=== PATIENT | female | born 1970 | race Hispanic/Latino ===

== ENCOUNTER → 2017-07-12 | Outpatient (CLI) | payer OTHER | END | disposition home or self-care (01) | LOC: OIH 08:33 | PROVIDERS: ATTEND Internal Medicine | DX: N28.1 Cyst of kidney, acquired (principal); Z90.49 Acquired absence of other specified parts of digestive tract | CPT/HCPCS: 74150 ==

== ENCOUNTER → 2018-08-30 | Outpatient (CLI) | payer OTHER | END | disposition home or self-care (01) | LOC: OIH 10:40 | PROVIDERS: ATTEND Internal Medicine | DX: M47.816 Spondylosis without myelopathy or radiculopathy, lumbar region (principal); M16.12 Unilateral primary osteoarthritis, left hip; M41.56 Other secondary scoliosis, lumbar region; M25.78 Osteophyte, vertebrae; I70.0 Atherosclerosis of aorta | CPT/HCPCS: 72100; 73502 ==

== ENCOUNTER → 2018-12-22 | Outpatient (CLI) | payer OTHER ==
[~2018-12-22] MED LIST: ASPI-555 PO; CHOL100044 PO; CILO50TA PO; FERR324T PO; INSU100I13 SQ; LISI-613 PO; METF-444 PO; METO25TA6 PO; RIVA2.5T PO; ROSU40TA21 PO
== END | disposition home or self-care (01) ==
LOC: OIH 15:25
PROVIDERS: ATTEND Internal Medicine
DX: I10 Essential (primary) hypertension (principal); Z90.49 Acquired absence of other specified parts of digestive tract
CPT/HCPCS: 71046

== ENCOUNTER 2018-12-29 22:39 | Inpatient (IN) | payer OTHER ==
[2018-12-29] MEDS ORDERED: ASPIRIN 81MG TAB.CHEW ONE (23:14)
[2018-12-29 23:33] LABS: APPEARANCE,URINE Clear (CLEAR); BILIRUBIN,URINE Negative (NEGATIVE); COLOR,URINE Yellow (YELLOW); GLUCOSE, URINE (UA) >=1000 mg/dL (NEGATIVE); KETONES,URINE Negative (NEGATIVE); LEUKOCYTE ESTERASE ,URINE Negative (NEGATIVE); NITRATE,URINE Negative (NEGATIVE); OCCULT BLOOD,URINE Negative (NEGATIVE); PROTEIN,URINE Negative (NEGATIVE); UROBILINOGEN,URINE 0.2 mg/dL (0.2-1.0)
[2018-12-29 23:37] LABS: POTASSIUM 3.7 mmol/L (3.5-5.1)
[2018-12-29 23:37] LABS: HCG,QUAL RESULT NEGATIVE (NEGATIVE)
[2018-12-29 23:39] LABS: BASOPHILS % (AUTO) 0.7 % (0.0-5.0); EOSINOPHILS % (AUTO) 1.3 % (0.0-8.0); HEMATOCRIT 32.9 % (36-48); LYMPHOCYTES % (AUTO) 22.7 % (21.0-51.0); MEAN CORPUSCULAR HEMOGLOBIN 25.7 pg (27.0-33.0); MEAN CORPUSCULAR HGB CONC 33.2 g/dL (32.0-36.0); MEAN CORPUSCULAR VOLUME 77.5 fL (79-99); MONOCYTES % (AUTO) 4.6 % (3.0-13.0); NEUTROPHILS % (AUTO) 70.7 % (40.0-77.0); PLATELET COUNT (AUTO) 324 K/uL (130-400); RED BLOOD CELL COUNT(AUTO) 4.25 MIL/uL (4.00-5.50); RED CELL DISTRIBUTION WIDTH 15.4 % (11.0-15.5); WHITE BLOOD COUNT (AUTO) 8.9 K/uL (4.8-10.8)
[2018-12-29 23:41] LABS: ALBUMIN 3.4 g/dL (3.5-5.0); BILIRUBIN,DIRECT 0.1 mg/dL (0.0-0.3); BILIRUBIN,TOTAL 0.2 mg/dL (0.2-1.0); TOTAL PROTEIN, SERUM 7.1 g/dL (6.0-8.3)
[2018-12-29 23:42] LABS: INR 1.21 (0.85-1.15); PARTIAL THROMBOPLASTIN TIME 76.6 SEC (26.3-35.5); PROTHROMBIN TIME 12.6 SEC (9.6-11.6)
[2018-12-29 23:44] LABS: BACTERIA,URINE None Seen /HPF (None Seen); RBC,URINE None Seen /HPF (0-1); SQUAMOUS EPITHELIAL CELL,UR Rare /HPF (0-2); WBC,URINE None Seen /HPF (0-1); YEAST,URINE BUDDING None Seen /HPF (None Seen)
[2018-12-29 23:54] LABS: B-TYPE NATRIURETIC PEPTIDE 11 pg/mL (0-100)
[2018-12-30] MEDS ORDERED: SODIUM CHLORIDE 0.9% 1000ML 1,000 ML IV ONE ×3 (00:17→05:05)
[2018-12-30] MEDS ORDERED: ONDANSETRON HCL 4 MG/2 ML VIAL ONE ×2 (00:18→02:24)
[2018-12-30] MEDS ORDERED: NITROGLYCERIN 1GM/1 INCH PACKET TD ONE (00:19)
[2018-12-30] MEDS ORDERED: MORPHINE SULFATE 2 MG/ML 1ML SYG ONE ×2 (00:19→02:24)
[2018-12-30] MEDS ORDERED: INSULIN HUMULIN R 100 UNIT/ML 3ML ONE (00:20)
[2018-12-30] MEDS ORDERED: CILO50TA PO (03:26)
[2018-12-30] MEDS ORDERED: FERR324T PO (03:26)
[2018-12-30] MEDS ORDERED: ASPI-555 PO (03:26)
[2018-12-30] MEDS ORDERED: METF-444 PO (03:26)
[2018-12-30] MEDS ORDERED: CHOL100044 PO (03:26)
[2018-12-30] MEDS ORDERED: ROSU40TA21 PO (03:26)
[2018-12-30] MEDS ORDERED: METO25TA6 PO (03:26)
[2018-12-30] MEDS ORDERED: RIVA2.5T PO (03:26)
[2018-12-30] MEDS ORDERED: LISI-613 PO (03:26)
[2018-12-30] MEDS ORDERED: INSU100I13 SQ (03:28)
[2018-12-30] MEDS: SODIUM CHLORIDE 0.9% 1000ML 1,000 ML IV SCH ×2 (04:30→20:05)
[2018-12-30 04:47] VITALS: BP 124/64
[2018-12-30 05:18] LABS: HEMATOCRIT 27.1 % (36-48); MEAN CORPUSCULAR HEMOGLOBIN 25.7 pg (27.0-33.0); MEAN CORPUSCULAR HGB CONC 33.6 g/dL (32.0-36.0); MEAN CORPUSCULAR VOLUME 76.4 fL (79-99); PLATELET COUNT (AUTO) 290 K/uL (130-400); RED BLOOD CELL COUNT(AUTO) 3.54 MIL/uL (4.00-5.50); RED CELL DISTRIBUTION WIDTH 15.2 % (11.0-15.5); WHITE BLOOD COUNT (AUTO) 7.9 K/uL (4.8-10.8)
[2018-12-30 05:39] LABS: CARBON DIOXIDE 24 mmol/L (21-32); CHLORIDE 108 mmol/L (101-111); CHOLESTEROL 101 mg/dL (<200); CREATINE KINASE, TOTAL 72 U/L (21-232); CREATININE 0.8 mg/dL (0.5-1.5); GLOMERULAR FILTR. RATE CALC 81 mL/min (>60); GLUCOSE,RANDOM 163 mg/dL (70-105); HDL CHOLESTEROL 36 mg/dL (35-85); LDL DIRECT 52 mg/dL (0-99); MYOGLOBIN 30 ng/mL (10-92); POTASSIUM 3.7 mmol/L (3.5-5.1); SODIUM SERUM 141 mmol/L (136-145); TRIGLYCERIDES 145 mg/dL (30-200); TROPONIN I < 0.04 ng/mL (0.00-0.06); UREA NITROGEN, BLOOD 12 mg/dL (7-18)
[2018-12-30] MEDS ORDERED: POTASSIUM CHLORIDE 20 MEQ ERTAB PO PRN (06:30)
[2018-12-30] MEDS ORDERED: MAGNESIUM 2GM PREMIX 50ML 50 ML IV PRN (06:30)
[2018-12-30] MEDS ORDERED: ONDANSETRON HCL 4 MG/2 ML VIAL IVP PRN (06:30)
[2018-12-30] MEDS ORDERED: HYDROMORPHONE HCL 0.5 MG/0.5 ML ML IVP PRN (06:30)
[2018-12-30] MEDS ORDERED: NITROGLYCERIN 1GM/1 INCH PACKET TD SCH (06:30)
[2018-12-30] MEDS: NITROGLYCERIN 1GM/1 INCH PACKET TD SCH ×3 (06:45→17:44)
[2018-12-30] MEDS: INSULIN HUMULIN R 100 UNIT/ML 3ML SQ SCH ×4 (06:52→20:32)
[2018-12-30] MEDS: ASPIRIN 325 MG TABLET PO SCH (07:53)
[2018-12-30] MEDS: CLINDAMYCIN 600 MG/D5% WATER 50 ML IV SCH ×2 (07:53→20:04)
[2018-12-30 07:56] VITALS: BP 126/68
[2018-12-30] MEDS ORDERED: CEFTRIAXONE SODIUM 1 GM IVP SCH (08:00)
[2018-12-30 12:01] VITALS: BP 128/62
[2018-12-30 12:15] LABS: CREATINE KINASE, TOTAL 61 U/L (21-232); MYOGLOBIN 34 ng/mL (10-92); TROPONIN I < 0.04 ng/mL (0.00-0.06)
[2018-12-30 16:34] VITALS: BP 144/84
[2018-12-30 19:32] VITALS: BP 162/83
[2018-12-30] MEDS: RIVAROXABAN 2.5 MG PO SCH (21:41)
[2018-12-30] MEDS ORDERED: MAGNESIUM CITRATE 296 ML SOLUTION PO ONE (23:00)
[2018-12-30 23:23] VITALS: BP 159/90
[2018-12-31] MEDS: NITROGLYCERIN 1GM/1 INCH PACKET TD SCH ×2 (00:45→05:53)
[2018-12-31 03:35] VITALS: BP 145/77
[2018-12-31 04:20] LABS: HEMATOCRIT 27.4 % (36-48); MEAN CORPUSCULAR HEMOGLOBIN 25.9 pg (27.0-33.0); MEAN CORPUSCULAR VOLUME 76.3 fL (79-99); PLATELET COUNT (AUTO) 273 K/uL (130-400); RED BLOOD CELL COUNT(AUTO) 3.59 MIL/uL (4.00-5.50); WHITE BLOOD COUNT (AUTO) 8.3 K/uL (4.8-10.8)
[2018-12-31 04:24] LABS: CREATININE 0.9 mg/dL (0.5-1.5); MAGNESIUM 1.6 mg/dL (1.80-2.40); POTASSIUM 3.6 mmol/L (3.5-5.1)
[2018-12-31] MEDS: INSULIN HUMULIN R 100 UNIT/ML 3ML SQ SCH (05:26)
[2018-12-31 05:33] LABS: BAND NEUTROPHILS % (MANUAL) 2 % (0-2); BASOPHILS % (MANUAL) 1 % (0-2); EOSINOPHILS % (MANUAL) 2 % (1-6); LYMPHOCYTES % (MANUAL) 24 % (22-44); MAN.DIFF COMMENT-IMPRESSION MANUAL DIFFERENTIAL; MONOCYTES % (MANUAL) 6 % (2-9); PLATELET MORPHOLOGY COMMENT ADEQUATE; REACTIVE LYMPHOCYTES 2 % (0-0); SEGMENTED NEUTROPHILS % 63 % (40-70)
--- NOTE | 2018-12-31 06:29 | NUR ---
MD Visit per MD Siu, patient ok to go home discharge today.
[2018-12-31] MEDS: GENTAMICIN SULFATE 0.3% 3.5 GM OPHTH OINT OU SCH ×2 (07:00→09:03)
[2018-12-31] MEDS: SODIUM CHLORIDE 0.9% 1000ML 1,000 ML IV SCH (07:10)
[2018-12-31 08:51] VITALS: BP 136/74
[2018-12-31] MEDS: RIVAROXABAN 2.5 MG PO SCH (09:00)
[2018-12-31] MEDS: CLINDAMYCIN 600 MG/D5% WATER 50 ML IV SCH (09:03)
[2018-12-31] MEDS: ASPIRIN 325 MG TABLET PO SCH (09:03)
== END 2018-12-31 09:56 | disposition home or self-care (01) | DRG 313 ==
LOC: EDH 22:39 → EDHIP 12-30 00:30 → 2DH 12-30 03:08
PROVIDERS: ADMIT Family Medicine; ATTEND Family Medicine
DX: R07.9 Chest pain, unspecified (principal); K85.90 Acute pancreatitis without necrosis or infection, unspecified; E11.9 Type 2 diabetes mellitus without complications; E78.5 Hyperlipidemia, unspecified; H10.9 Unspecified conjunctivitis; I10 Essential (primary) hypertension; I25.10 Atherosclerotic heart disease of native coronary artery without angina pectoris; Z79.01 Long term (current) use of anticoagulants; Z79.4 Long term (current) use of insulin; Z95.5 Presence of coronary angioplasty implant and graft
CPT/HCPCS: 36415; 71046; 74176; 76700; 80048; 80061; 80076; 81001; 81025; 82550; 82948; 83690; 83735; 83874; 83880; 84484; 85025; 85027; 85610; 85730; 93005; 93306; G0378; J1815; J2405; J3475; J3490; J7030

== ENCOUNTER 2021-02-23 14:43 | Observation (INO) | payer OTHER ==
[~2021-02-23] VITALS: Ht 154.9 cm; Wt 88.0 kg
[~2021-02-23 14:43] MED LIST changes: -ASPI-555 PO; +ASPI-556 PO; -LISI-613 PO; +LISI20TA24 PO
[2021-02-23 15:04] LABS: BASOPHILS % (AUTO) 0.4 % (0.0-5.0); EOSINOPHILS % (AUTO) 1.2 % (0.0-8.0); HEMATOCRIT 40.3 % (36-48); LYMPHOCYTES % (AUTO) 22.6 % (21.0-51.0); MEAN CORPUSCULAR HEMOGLOBIN 25.5 pg (27.0-33.0); MEAN CORPUSCULAR VOLUME 77.4 fL (79-99); MONOCYTES % (AUTO) 4.5 % (3.0-13.0); PLATELET COUNT (AUTO) 303 K/uL (130-400); RED BLOOD CELL COUNT(AUTO) 5.21 MIL/uL (4.00-5.50); RED CELL DISTRIBUTION WIDTH 12.9 % (11.0-15.5)
[2021-02-23 15:18] LABS: CREATININE 1.2 mg/dL (0.5-1.5); POTASSIUM 3.6 mmol/L (3.5-5.1)
[2021-02-23 15:28] LABS: ALBUMIN 3.5 g/dL (3.5-5.0); BILIRUBIN,TOTAL 0.3 mg/dL (0.2-1.0); TOTAL PROTEIN, SERUM 7.9 g/dL (6.0-8.3)
[2021-02-23] MEDS ORDERED: NITROGLYCERIN 0.4 MG SL TAB SL ONE (15:29)
[2021-02-23] MEDS ORDERED: NITROGLYCERIN 1GM OINT 1 INCH/1GM TD ONE ×2 (15:29→15:30)
[2021-02-23] MEDS ORDERED: LORAZEPAM 2 MG/ML 1 ML VIAL ONE (15:30)
[2021-02-23] MEDS ORDERED: LORAZEPAM 2 MG/ML 1 ML VIAL IVP ONE (15:30)
[2021-02-23] MEDS ORDERED: ASPIRIN 325MG TAB PO ONE (15:30)
[2021-02-23] MEDS ORDERED: ASPIRIN 325MG TAB ONE (15:34)
[2021-02-23] MEDS: NITROGLYCERIN 0.4 MG SL TAB SL PRN (16:02)
[2021-02-23] MEDS ORDERED: INSULIN HUMULIN R 100 UNIT/ML 3ML SQ ONE (16:30)
[2021-02-23 18:00] VITALS: BP 158/85
[2021-02-23] MEDS ORDERED: CLOP75TA14 PO (18:00)
[2021-02-23] MEDS ORDERED: ESTR1TAB17 PO (18:00)
[2021-02-23] MEDS ORDERED: PRAS10TA9 PO (18:00)
[2021-02-23] MEDS ORDERED: METFORMIN HCL 500 MG TABLET PO SCH (18:34)
[2021-02-23] MEDS ORDERED: PRASUGREL HCL 10 MG TABLET PO SCH (19:30)
[2021-02-23 20:14] VITALS: BP 140/79
[2021-02-23] MEDS: METOPROLOL TARTRATE 25 MG TAB PO SCH (21:03)
[2021-02-23] MEDS: ATORVASTATIN 40 MG TABLET PO SCH (21:04)
[2021-02-23] MEDS: CILOSTAZOL 100 MG TAB PO SCH (21:04)
[2021-02-23] MEDS: INSULIN HUMULIN 70/30 100 UNIT/ML 3ML SQ SCH (21:09)
[2021-02-23] MEDS: MORPHINE 2 MG SYG IVP PRN (22:23)
[2021-02-23 23:54] VITALS: BP 137/77
[2021-02-24 04:08] VITALS: BP 134/69
[2021-02-24 07:18] VITALS: BP 123/77
[2021-02-24] MEDS ORDERED: METOPROLOL TARTRATE 25 MG TAB PO SCH (09:00)
[2021-02-24] MEDS: **HM**(Cholecalciferol (Vitamin D3) (Vitamin D) 1,000 UNIT PO SCH (09:00)
[2021-02-24] MEDS: MORPHINE 2 MG SYG IVP PRN ×2 (09:36→20:03)
[2021-02-24] MEDS: ESTRADIOL 0.5 MG TABLET PO SCH (09:37)
[2021-02-24] MEDS: PRASUGREL HCL 10 MG TABLET PO SCH (09:38)
[2021-02-24] MEDS: CILOSTAZOL 100 MG TAB PO SCH ×2 (09:43→21:15)
[2021-02-24] MEDS: LISINOPRIL 20 MG TABLET PO SCH (09:45)
[2021-02-24] MEDS: METOPROLOL TARTRATE 25 MG TAB PO SCH ×2 (09:45→20:40)
[2021-02-24] MEDS: ASPIRIN 81 MG EC TAB PO SCH (09:46)
[2021-02-24] MEDS: INSULIN HUMULIN 70/30 100 UNIT/ML 3ML SQ SCH ×2 (10:15→22:37)
[2021-02-24 11:28] VITALS: BP 152/83
[2021-02-24 15:10] VITALS: BP 110/64
[2021-02-24 15:38] LABS: APPEARANCE,URINE Cloudy (CLEAR); BILIRUBIN,URINE Negative (NEGATIVE); COLOR,URINE Yellow (YELLOW); GLUCOSE, URINE (UA) >=1000 mg/dL (NEGATIVE); KETONES,URINE Negative (NEGATIVE); LEUKOCYTE ESTERASE ,URINE Negative (NEGATIVE); NITRATE,URINE Negative (NEGATIVE); OCCULT BLOOD,URINE Negative (NEGATIVE); PROTEIN,URINE POS 1+ mg/dL (NEGATIVE); UROBILINOGEN,URINE 0.2 mg/dL (0.2-1.0)
[2021-02-24 15:48] LABS: BACTERIA,URINE Moderate /HPF (None Seen); RBC,URINE 0-1 /HPF (0-1); SQUAMOUS EPITHELIAL CELL,UR Few /HPF (0-2); WBC,URINE 0-1 /HPF (0-1)
[2021-02-24 20:00] VITALS: BP 165/96
[2021-02-24] MEDS: NITROGLYCERIN 0.4 MG SL TAB SL PRN (20:37)
[2021-02-24] MEDS ORDERED: MAG/ALUM/SIMETH 30 ML UDCUP ONE (20:56)
[2021-02-24] MEDS ORDERED: METOPROLOL TARTRATE 1 MG/ML 5ML VIAL IV ONE ×2 (21:00→21:10)
[2021-02-24] MEDS: ATORVASTATIN 40 MG TABLET PO SCH (21:14)
[2021-02-25] VITALS: BP 130/69
[2021-02-25] MEDS ORDERED: NITROGLYCERIN 1GM OINT 1 INCH/1GM TD PRN (03:00)
[2021-02-25 04:00] VITALS: BP 115/63
[2021-02-25] MEDS: **HM**(Cholecalciferol (Vitamin D3) (Vitamin D) 1,000 UNIT PO SCH (09:00)
[2021-02-25] MEDS ORDERED: METOPROLOL TARTRATE 25 MG TAB PO SCH (09:00)
[2021-02-25 09:26] VITALS: BP 122/68
[2021-02-25] MEDS: PRASUGREL HCL 10 MG TABLET PO SCH (09:27)
[2021-02-25] MEDS: ASPIRIN 81 MG EC TAB PO SCH (09:27)
[2021-02-25] MEDS: ESTRADIOL 0.5 MG TABLET PO SCH (09:28)
[2021-02-25] MEDS: LISINOPRIL 20 MG TABLET PO SCH (09:28)
[2021-02-25] MEDS: CILOSTAZOL 100 MG TAB PO SCH (09:28)
[2021-02-25] MEDS: INSULIN HUMULIN 70/30 100 UNIT/ML 3ML SQ SCH (09:53)
[2021-02-25 11:21] VITALS: BP 130/63
[2021-02-25] MEDS: MORPHINE 2 MG SYG IVP PRN (16:34)
[2021-02-25 16:45] VITALS: BP 138/68
== END 2021-02-25 18:41 | disposition home or self-care (01) ==
LOC: EDH 14:43 → EDHIP 16:00 → 3AH 17:20
PROVIDERS: ADMIT Internal Medicine; ATTEND Internal Medicine
DX: I25.110 Atherosclerotic heart disease of native coronary artery with unstable angina pectoris (principal); I21.4 Non-ST elevation (NSTEMI) myocardial infarction; I24.9 Acute ischemic heart disease, unspecified; E10.65 Type 1 diabetes mellitus with hyperglycemia; E10.51 Type 1 diabetes mellitus with diabetic peripheral angiopathy without gangrene; I10 Essential (primary) hypertension; I25.2 Old myocardial infarction; K22.9 Disease of esophagus, unspecified; E66.9 Obesity, unspecified; E78.5 Hyperlipidemia, unspecified; Z79.4 Long term (current) use of insulin; Z90.710 Acquired absence of both cervix and uterus; Z79.84 Long term (current) use of oral hypoglycemic drugs; Z79.82 Long term (current) use of aspirin; Z79.899 Other long term (current) drug therapy; Z98.890 Other specified postprocedural states; Z68.36 Body mass index [BMI] 36.0-36.9, adult
CPT/HCPCS: 36415 ×3; 71045; 80053; 81001; 82550 ×4; 82948 ×6; 83874 ×4; 83880; 84484 ×5; 85025; 86140; 87077; 87088; 87186; 93005 ×4; 96372 ×3; 96374; 96375; 96376 ×2; 99285; G0378 ×50; J1815 ×5; J2060; J3490

== ENCOUNTER 2021-07-02 21:36 | Inpatient (IN) | payer MEDICARE, OTHER ==
[~2021-07-02] VITALS: Ht 154.9 cm; Wt 83.6 kg
[~2021-07-02 21:36] MED LIST changes: +CLOP75TA14 PO; +ESTR1TAB17 PO; +PRAS10TA9 PO
[2021-07-02] MEDS ORDERED: ASPIRIN 81MG CHEW TAB PO ONE (22:00)
[2021-07-02] MEDS ORDERED: LORAZEPAM 2 MG/ML 1 ML VIAL IVP ONE ×2 (22:00→23:00)
[2021-07-02] MEDS ORDERED: MORPHINE 4 MG SYG IVP ONE (22:00)
[2021-07-02] MEDS ORDERED: ONDANSETRON 4MG INJ IVP ONE (22:00)
[2021-07-02 22:13] LABS: BASOPHILS % (AUTO) 0.3 % (0.0-5.0); EOSINOPHILS % (AUTO) 0.9 % (0.0-8.0); HEMATOCRIT 40.3 % (36-48); LYMPHOCYTES % (AUTO) 14.8 % (21.0-51.0); MEAN CORPUSCULAR HEMOGLOBIN 25.3 pg (27.0-33.0); MEAN CORPUSCULAR HGB CONC 33.7 g/dL (32.0-36.0); MONOCYTES % (AUTO) 4.1 % (3.0-13.0); NEUTROPHILS % (AUTO) 79.7 % (40.0-77.0); PLATELET COUNT (AUTO) 346 K/uL (130-400); RED BLOOD CELL COUNT(AUTO) 5.37 MIL/uL (4.00-5.50); RED CELL DISTRIBUTION WIDTH 13.7 % (11.0-15.5); WHITE BLOOD COUNT (AUTO) 12.8 K/uL (4.8-10.8)
[2021-07-02] MEDS: NITROGLYCERIN 50MG/D5W 250ML 1 BOT IV PRN ×2 (22:22→22:38)
[2021-07-02 22:32] LABS: CREATININE 1.2 mg/dL (0.5-1.5); POTASSIUM 3.6 mmol/L (3.5-5.1)
[2021-07-02 22:37] LABS: ALBUMIN 4.1 g/dL (3.5-5.0); BILIRUBIN,TOTAL 0.3 mg/dL (0.2-1.0); MAGNESIUM 1.7 mg/dL (1.80-2.40); TOTAL PROTEIN, SERUM 8.4 g/dL (6.0-8.3)
[2021-07-02] MEDS ORDERED: ENOXAPARIN SODIUM 80 MG/0.8 ML SQ SCH (23:30)
[2021-07-02] MEDS ORDERED: IOHEXOL-350 75 ML VIAL IV ONE (23:50)
[2021-07-03] VITALS (44 sets, daily range): BP systolic 94–177; BP diastolic 60–104
[2021-07-03] MEDS ORDERED: METOPROLOL TARTRATE 1 MG/ML 5ML VIAL IV ONE
[2021-07-03] MEDS ORDERED: MORPHINE 2 MG SYG ONE (00:30)
[2021-07-03] MEDS: MORPHINE 2 MG SYG IVP PRN ×2 (00:30→04:54)
[2021-07-03] MEDS ORDERED: CLONIDINE HCL 0.1 MG TABLET PO PRN (01:00)
[2021-07-03 03:51] LABS: BASOPHILS % (AUTO) 0.3 % (0.0-5.0); EOSINOPHILS % (AUTO) 0.3 % (0.0-8.0); HEMATOCRIT 36.9 % (36-48); LYMPHOCYTES % (AUTO) 15.8 % (21.0-51.0); MEAN CORPUSCULAR HGB CONC 31.7 g/dL (32.0-36.0); MEAN CORPUSCULAR VOLUME 75.8 fL (79-99); MONOCYTES % (AUTO) 4.1 % (3.0-13.0); NEUTROPHILS % (AUTO) 79.2 % (40.0-77.0); PLATELET COUNT (AUTO) 315 K/uL (130-400); RED BLOOD CELL COUNT(AUTO) 4.87 MIL/uL (4.00-5.50); RED CELL DISTRIBUTION WIDTH 13.5 % (11.0-15.5); WHITE BLOOD COUNT (AUTO) 11.5 K/uL (4.8-10.8)
[2021-07-03 04:01] LABS: CREATININE 0.9 mg/dL (0.5-1.5); POTASSIUM 4.1 mmol/L (3.5-5.1)
[2021-07-03 04:26] LABS: ALBUMIN 3.4 g/dL (3.5-5.0); BILIRUBIN,TOTAL 0.2 mg/dL (0.2-1.0); TOTAL PROTEIN, SERUM 7.6 g/dL (6.0-8.3)
[2021-07-03] MEDS ORDERED: METOPROLOL TARTRATE 25 MG TAB ONE (05:05)
[2021-07-03] MEDS: 0.9%NACL 1000ML 1,000 ML IV SCH ×2 (05:59→18:30)
[2021-07-03] MEDS: METOPROLOL TARTRATE 25 MG TAB PO SCH ×3 (06:00→21:20)
[2021-07-03] MEDS ORDERED: ASPIRIN 81 MG EC TAB PO SCH (09:00)
[2021-07-03] MEDS: ENOXAPARIN SODIUM 80 MG/0.8 ML SQ SCH ×2 (09:32→21:20)
[2021-07-03] MEDS ORDERED: ISOS60TA77 PO (10:40)
[2021-07-03] MEDS ORDERED: HEPARIN 10,000 UNIT/10ML (1,000 UNIT/ML) VIAL ONE (11:56)
[2021-07-03] MEDS ORDERED: IOHEXOL 350 MG/ML 100ML INFUS..BTL IV ONE (11:57)
[2021-07-03] MEDS ORDERED: LIDOCAINE HCL 400MG/20ML VIAL ONE (11:57)
[2021-07-03] MEDS ORDERED: NITROGLYCERIN 50MG VIAL ONE (11:57)
[2021-07-03] MEDS ORDERED: IOHEXOL-350 50ML VIAL IV ONE (11:57)
[2021-07-03] MEDS ORDERED: BIVALIRUDIN 250 MG/VIAL IV ONE (11:58)
[2021-07-03] MEDS ORDERED: FENTANYL CITRATE PF 50 MCG/1 ML 2ML VIAL ONE (12:03)
[2021-07-03] MEDS ORDERED: MIDAZOLAM HCL 1 MG/ML 2ML VIAL ONE (12:03)
[2021-07-03 12:16] LABS: INR 0.98 (0.85-1.15); PROTHROMBIN TIME 10.7 SEC (9.6-11.6)
[2021-07-03 12:17] LABS: PARTIAL THROMBOPLASTIN TIME 34.6 SEC (26.3-35.5)
[2021-07-03] MEDS ORDERED: MAGNESIUM 2GM PREMIX 50ML 50 ML IV PRN (13:30)
[2021-07-03] MEDS ORDERED: LIDOCAINE HCL-MPF 1% 2ML VIAL IV PRN (13:30)
[2021-07-03] MEDS ORDERED: POTASSIUM CHLORIDE 20MEQ/100ML 100 ML IV PRN (13:30)
[2021-07-03] MEDS ORDERED: VERAPAMIL HCL 2.5 MG/ML VIAL ONE (14:12)
[2021-07-03] MEDS ORDERED: HYDRALAZINE 20MG/ML VIAL ONE (14:20)
[2021-07-03] MEDS ORDERED: NITROGLYCERIN 0.4 MG SL TAB SL PRN (16:00)
[2021-07-03] MEDS ORDERED: ONDANSETRON 4MG INJ IVP PRN (16:00)
[2021-07-03] MEDS: INSULIN HUMULIN R 100 UNIT/ML 3ML SQ SCH ×2 (16:30→21:16)
[2021-07-03 17:09] LABS: MYOGLOBIN 58 ng/mL (10-92)
[2021-07-03 17:10] LABS: CREATINE KINASE, TOTAL 439 U/L (21-232)
[2021-07-03] MEDS: METFORMIN HCL 500 MG TABLET PO SCH (19:40)
[2021-07-03] MEDS ORDERED: HUMALOG MIX SQ SCH (21:00)
[2021-07-03] MEDS: INSULIN HUMULIN 70/30 100 UNIT/ML 3ML SQ SCH (21:18)
[2021-07-03] MEDS: CILOSTAZOL 50 MG PO SCH (21:23)
[2021-07-03] MEDS: Rosuvastatin Calcium 40 MG PO SCH (21:24)
[2021-07-03] MEDS: FERROUS GLUCONATE TABLET PO SCH (21:28)
[2021-07-04] VITALS (24 sets, daily range): BP systolic 98–130; BP diastolic 47–74
[2021-07-04 04:11] LABS: BASOPHILS % (AUTO) 0.3 % (0.0-5.0); EOSINOPHILS % (AUTO) 1.5 % (0.0-8.0); MEAN CORPUSCULAR HEMOGLOBIN 24.5 pg (27.0-33.0); MEAN CORPUSCULAR HGB CONC 31.9 g/dL (32.0-36.0); MEAN CORPUSCULAR VOLUME 76.9 fL (79-99); MONOCYTES % (AUTO) 7.7 % (3.0-13.0); NEUTROPHILS % (AUTO) 66.8 % (40.0-77.0); PLATELET COUNT (AUTO) 245 K/uL (130-400); RED BLOOD CELL COUNT(AUTO) 4.16 MIL/uL (4.00-5.50); RED CELL DISTRIBUTION WIDTH 13.6 % (11.0-15.5); WHITE BLOOD COUNT (AUTO) 6.8 K/uL (4.8-10.8)
[2021-07-04 04:25] LABS: ALBUMIN 2.7 g/dL (3.5-5.0); BILIRUBIN,TOTAL 0.3 mg/dL (0.2-1.0); CREATININE 0.9 mg/dL (0.5-1.5); PHOSPHORUS 3.7 mg/dL (2.5-4.9); POTASSIUM 3.8 mmol/L (3.5-5.1); TOTAL PROTEIN, SERUM 6.4 g/dL (6.0-8.3)
[2021-07-04 05:29] LABS: B-TYPE NATRIURETIC PEPTIDE 152 pg/mL (0-100)
[2021-07-04] MEDS: METOPROLOL TARTRATE 25 MG TAB PO SCH ×3 (06:22→21:07)
[2021-07-04 06:29] LABS: HEMOGLOBIN A1C 8.3 % (4.0-6.0)
[2021-07-04] MEDS: INSULIN HUMULIN R 100 UNIT/ML 3ML SQ SCH ×4 (07:30→20:29)
[2021-07-04] MEDS: 0.9%NACL 1000ML 1,000 ML IV SCH ×2 (08:10→21:07)
[2021-07-04] MEDS: PRASUGREL HCL 10 MG TABLET PO SCH (08:11)
[2021-07-04] MEDS: ASPIRIN 81 MG EC TAB PO SCH (08:11)
[2021-07-04] MEDS: LISINOPRIL 20 MG TABLET PO SCH (08:11)
[2021-07-04] MEDS: FERROUS GLUCONATE TABLET PO SCH ×2 (08:15→20:26)
[2021-07-04] MEDS: ISOSORBIDE MONO 60MG SR TAB PO SCH (08:15)
[2021-07-04] MEDS: ESTRADIOL 0.5 MG TABLET PO SCH (08:16)
[2021-07-04] MEDS: METFORMIN HCL 500 MG TABLET PO SCH ×2 (08:16→19:20)
[2021-07-04] MEDS: CILOSTAZOL 50 MG PO SCH ×2 (08:20→21:07)
[2021-07-04] MEDS: ENOXAPARIN SODIUM 80 MG/0.8 ML SQ SCH ×2 (09:49→20:27)
[2021-07-04] MEDS: INSULIN HUMULIN 70/30 100 UNIT/ML 3ML SQ SCH ×2 (09:52→20:29)
[2021-07-04] MEDS: Rosuvastatin Calcium 40 MG PO SCH (21:07)
[2021-07-05 03:49] VITALS: BP 135/74
[2021-07-05] MEDS: METOPROLOL TARTRATE 25 MG TAB PO SCH (05:48)
[2021-07-05] MEDS: INSULIN HUMULIN R 100 UNIT/ML 3ML SQ SCH ×2 (06:22→11:30)
[2021-07-05 07:15] VITALS: BP 132/74
[2021-07-05] MEDS: FERROUS GLUCONATE TABLET PO SCH (08:13)
[2021-07-05] MEDS: PRASUGREL HCL 10 MG TABLET PO SCH (08:15)
[2021-07-05] MEDS: ASPIRIN 81 MG EC TAB PO SCH (08:15)
[2021-07-05] MEDS: ISOSORBIDE MONO 60MG SR TAB PO SCH (08:15)
[2021-07-05] MEDS: METFORMIN HCL 500 MG TABLET PO SCH (08:15)
[2021-07-05] MEDS: LISINOPRIL 20 MG TABLET PO SCH (08:15)
[2021-07-05] MEDS: ENOXAPARIN SODIUM 80 MG/0.8 ML SQ SCH (08:16)
[2021-07-05] MEDS: INSULIN HUMULIN 70/30 100 UNIT/ML 3ML SQ SCH (08:21)
[2021-07-05] MEDS: CILOSTAZOL 50 MG PO SCH (09:00)
[2021-07-05] MEDS: ESTRADIOL 0.5 MG TABLET PO SCH (09:00)
[2021-07-05] MEDS: 0.9%NACL 1000ML 1,000 ML IV SCH (10:50)
[2021-07-05 13:16] VITALS: BP 128/80
== END 2021-07-05 14:05 | disposition home or self-care (01) | DRG 247 ==
LOC: EDH 21:36 → EDHIP 07-03 00:06 → 2CH 07-03 02:58 → 2DH 07-04 12:42
PROVIDERS: ADMIT Internal Medicine; ATTEND Internal Medicine
PROC: 4A023N7 Measurement of Cardiac Sampling and Pressure, Left Heart, Percutaneous Approach (ICD-10-PCS; principal; 2021-07-03)
PROC: B2111ZZ Fluoroscopy of Multiple Coronary Arteries using Low Osmolar Contrast (ICD-10-PCS; 2021-07-03)
PROC: B2151ZZ Fluoroscopy of Left Heart using Low Osmolar Contrast (ICD-10-PCS; 2021-07-03)
PROC: 027035Z Dilation of Coronary Artery, One Artery with Two Drug-eluting Intraluminal Devices, Percutaneous Approach (ICD-10-PCS; 2021-07-03)
DX: T82.855A Stenosis of coronary artery stent, initial encounter (principal); I16.1 Hypertensive emergency; E87.1 Hypo-osmolality and hyponatremia; M62.82 Rhabdomyolysis; I24.9 Acute ischemic heart disease, unspecified; D72.829 Elevated white blood cell count, unspecified; E11.51 Type 2 diabetes mellitus with diabetic peripheral angiopathy without gangrene; E11.65 Type 2 diabetes mellitus with hyperglycemia; E66.9 Obesity, unspecified; E88.09 Other disorders of plasma-protein metabolism, not elsewhere classified; I10 Essential (primary) hypertension; I25.10 Atherosclerotic heart disease of native coronary artery without angina pectoris; F32.9 Major depressive disorder, single episode, unspecified; Y84.0 Cardiac catheterization as the cause of abnormal reaction of the patient, or of later complication, without mention of misadventure at the time of the procedure; E78.5 Hyperlipidemia, unspecified; F41.9 Anxiety disorder, unspecified; Z88.0 Allergy status to penicillin; Z88.8 Allergy status to other drugs, medicaments and biological substances; Z68.34 Body mass index [BMI] 34.0-34.9, adult; Z79.899 Other long term (current) drug therapy; Z95.5 Presence of coronary angioplasty implant and graft; Z82.49 Family history of ischemic heart disease and other diseases of the circulatory system; Z83.3 Family history of diabetes mellitus; Y92.89 Other specified places as the place of occurrence of the external cause
CPT/HCPCS: 36415; 71045; 71275; 80053; 82550; 82948; 83036; 83735; 83874; 83880; 84100; 84145; 84484; 85025; 85378; 85610; 85730; 93005; 93458; 99156; 99157; 99291; C1769; C9600; G0378; J0360; J0583; J1644; J1650; J1815; J2060; J2250; J2270; J2405; J3010; J3490; J7030; Q9967

== ENCOUNTER → 2022-09-30 | Outpatient (CLI) | payer MEDICARE ==
[~2022-09-30] MED LIST changes: -CHOL100044 PO; -CILO50TA PO; -CLOP75TA14 PO; +CLOP75TA32 PO; +EZET10TA48 PO; -FERR324T PO; +FURO40TA5 PO; +ISOS60TA77 PO; +NIFE-78 PO; -PRAS10TA9 PO; +RANO10005 PO; -RIVA2.5T PO
== END | disposition home or self-care (01) ==
LOC: RAH 10:51
PROVIDERS: ATTEND Internal Medicine
DX: M79.89 Other specified soft tissue disorders (principal); I82.401 Acute embolism and thrombosis of unspecified deep veins of right lower extremity; Z95.1 Presence of aortocoronary bypass graft
CPT/HCPCS: 93971

== ENCOUNTER → 2022-12-18 | Outpatient (CLI) | payer MEDICARE ==
[~2022-12-18] MED LIST changes: +REGADENOSON 0.4 MG/5 ML PF SYG IVP ONE
== END | disposition home or self-care (01) ==
LOC: SHCH 09:40
PROVIDERS: ATTEND Student in an Organized Health Care Education/Training Program
DX: R07.89 Other chest pain (principal)
CPT/HCPCS: 78452; 96374; 93017; J2785; A9500 ×2

== ENCOUNTER 2023-01-08 06:11 | Day surgery (SDC) | payer MEDICARE ==
[2022-12-31 15:30] LABS: BASOPHILS # (AUTO) 0.02 K/uL (0.00-0.20); BASOPHILS % (AUTO) 0.3 % (0.0-5.0); EOSINOPHILS # (AUTO) 0.09 K/uL (0.00-0.70); EOSINOPHILS % (AUTO) 1.2 % (0.0-8.0); HEMATOCRIT 31.8 % (36-48); IMMATURE GRANULOCYTE ABSOLUTE 0.03 K/uL (0-1); LYMPHOCYTES # (AUTO) 1.8 K/uL (1.0-4.8); LYMPHOCYTES % (AUTO) 24.4 % (21.0-51.0); MEAN CORPUSCULAR HEMOGLOBIN 26.8 pg (27.0-33.0); MEAN CORPUSCULAR HGB CONC 33.3 g/dL (32.0-36.0); MEAN CORPUSCULAR VOLUME 80.3 fL (79-99); MONOCYTES # (AUTO) 0.5 K/uL (0.1-1.0); MONOCYTES % (AUTO) 6.2 % (3.0-13.0); NEUTROPHILS % (AUTO) 67.5 % (40.0-77.0); PLATELET COUNT (AUTO) 262 K/uL (130-400); RED BLOOD CELL COUNT(AUTO) 3.96 MIL/uL (4.00-5.50); RED CELL DISTRIBUTION WIDTH 14.6 % (11.0-15.5); WHITE BLOOD COUNT (AUTO) 7.5 K/uL (4.8-10.8)
[2022-12-31 15:41] LABS: POTASSIUM 3.5 mmol/L (3.5-5.1)
[2022-12-31 15:42] LABS: INR < 0.93 (0.85-1.15); PROTHROMBIN TIME 9.8 SEC (9.6-11.6)
[2022-12-31 15:43] LABS: PARTIAL THROMBOPLASTIN TIME 30.6 SEC (26.3-35.5)
[2022-12-31 15:52] LABS: B-TYPE NATRIURETIC PEPTIDE 36 pg/mL (0-100)
[2022-12-31 16:07] VITALS: BP 149/74; PULSE 71; RESP 18
[2022-12-31 16:09] LABS: APPEARANCE,URINE CLEAR (CLEAR); BILIRUBIN,URINE NEGATIVE (NEGATIVE); COLOR,URINE LIGHT-YELLOW (YELLOW); GLUCOSE, URINE (UA) 300 mg/dL (NEGATIVE); KETONES,URINE NEGATIVE (NEGATIVE); LEUKOCYTE ESTERASE ,URINE NEGATIVE Leu/uL (NEGATIVE); NITRATE,URINE NEGATIVE (NEGATIVE); OCCULT BLOOD,URINE NEGATIVE (NEGATIVE); PH,URINE 6.5 (5.0-8.0); PROTEIN,URINE NEGATIVE (NEGATIVE); UROBILINOGEN,URINE 0.2 mg/dL (0.2-1.0)
[2022-12-31 16:10] LABS: ADD UA MICROSCOPIC YES
[2022-12-31 16:11] LABS: MUCUS,URINE RARE LPF (None Seen); SQUAMOUS EPITHELIAL CELL,UR RARE /HPF (0-2)
[~2023-01-08] VITALS: Ht 154.9 cm; Wt 83.2 kg
[~2023-01-08 06:11] MED LIST changes: -EZET10TA48 PO; +FURO20TA4 PO; -FURO40TA5 PO; -METO25TA6 PO; +METO50TA18 PO; +ONDA4TAB10 PO; -REGADENOSON 0.4 MG/5 ML PF SYG IVP ONE; +SEMA1PEN3 SQ; +fish oil PO
[2023-01-08 06:13] VITALS: BP 139/72; PULSE 77; RESP 18
[2023-01-08] MEDS ORDERED: 0.9%NACL 1000ML 1,000 ML IV ONE (06:21)
[2023-01-08] MEDS ORDERED: HEPARIN 10,000 UNIT/10ML (1,000 UNIT/ML) VIAL ONE (07:10)
[2023-01-08] MEDS ORDERED: IODIXANOL 320 MG/ML 100 ML VIAL ONE (07:10)
[2023-01-08] MEDS ORDERED: LIDOCAINE HCL 400MG/20ML VIAL ONE (07:10)
[2023-01-08] MEDS ORDERED: NITROGLYCERIN 50MG VIAL ONE (07:10)
[2023-01-08] MEDS ORDERED: VERAPAMIL HCL 2.5 MG/ML VIAL ONE (07:22)
[2023-01-08] MEDS ORDERED: MIDAZOLAM HCL 1 MG/ML 2ML VIAL ONE ×2 (07:24→07:43)
[2023-01-08] MEDS ORDERED: FENTANYL CITRATE PF 50 MCG/1 ML 2ML VIAL ONE (07:24)
[2023-01-08] MEDS ORDERED: GLUCAGON 1MG KIT 1 MG ML IM PRN (09:00)
[2023-01-08] MEDS ORDERED: DEXTROSE 50%-WATER 50 ML DISP.SYRIN IV PRN (09:00)
[2023-01-08 09:10] VITALS: BP 124/57; PULSE 69; RESP 14
[2023-01-08 09:25] VITALS: BP 144/72; PULSE 65; RESP 14
[2023-01-08 09:40] VITALS: BP 149/69; PULSE 60; RESP 11
[2023-01-08 09:55] VITALS: BP 130/71; PULSE 66; RESP 13
[2023-01-08 10:25] VITALS: BP 144/68; PULSE 68; RESP 14
== END 2023-01-08 10:25 | disposition home or self-care (01) ==
LOC: DAH 06:11
PROVIDERS: ATTEND Student in an Organized Health Care Education/Training Program
DX: I73.9 Peripheral vascular disease, unspecified (principal); I25.709 Atherosclerosis of coronary artery bypass graft(s), unspecified, with unspecified angina pectoris; Z79.01 Long term (current) use of anticoagulants; Z88.0 Allergy status to penicillin; Z82.49 Family history of ischemic heart disease and other diseases of the circulatory system; Z82.3 Family history of stroke; Z83.3 Family history of diabetes mellitus; Z80.9 Family history of malignant neoplasm, unspecified; Z79.82 Long term (current) use of aspirin; Z79.899 Other long term (current) drug therapy; Z88.2 Allergy status to sulfonamides; Z88.8 Allergy status to other drugs, medicaments and biological substances; Z53.8 Procedure and treatment not carried out for other reasons
CPT/HCPCS: 71045; 80048; 83880; 85025; 85610; 85730; 81001; 36415; 93005; 82948 ×2; C1769; C1894; J3010; J3490 ×3; J7030; J1644 ×2; J2250 ×2; Q9967; A4215; A4222; A4221; A4663; A4216; A4606; A4223 ×3; 99156; 99157

== ENCOUNTER → 2023-01-11 | Outpatient (CLI) | payer MEDICARE ==
[~2023-01-11] MED LIST changes: +IOHEXOL 350 MG/ML 100ML INFUS..BTL IV ONE; +IOHEXOL-350 50ML VIAL IV ONE
== END | disposition home or self-care (01) ==
LOC: RAH 09:49 → EDSTATUS 10:00
PROVIDERS: ATTEND Student in an Organized Health Care Education/Training Program
DX: I73.9 Peripheral vascular disease, unspecified (principal); I74.5 Embolism and thrombosis of iliac artery; I74.8 Embolism and thrombosis of other arteries
CPT/HCPCS: 75635; Q9967 ×2

== ENCOUNTER → 2023-04-29 | Outpatient (CLI) | payer OTHER ==
[~2023-04-29] MED LIST changes: -IOHEXOL 350 MG/ML 100ML INFUS..BTL IV ONE; -IOHEXOL-350 50ML VIAL IV ONE
== END | disposition home or self-care (01) ==
LOC: RAH 08:22
PROVIDERS: ATTEND Internal Medicine
DX: M41.9 Scoliosis, unspecified (principal)
CPT/HCPCS: 72082

== ENCOUNTER 2023-11-19 20:31 | Observation (INO) | payer OTHER ==
[~2023-11-19] VITALS: Ht 154.9 cm; Wt 75.7 kg
[~2023-11-19 20:31] MED LIST changes: +ONDA-243 PO; -ONDA4TAB10 PO; -ROSU40TA21 PO; +ROSU40TA88 PO
[2023-11-19] MEDS: atorVAStatin 40 MG TABLET PO ONE (20:58)
[2023-11-19] MEDS: ASPIRIN 325MG TAB PO ONE (20:58)
[2023-11-19] MEDS: hydrALAZine 20MG/ML VIAL IV ONE (20:59)
[2023-11-19] MEDS: NITROGLYCERIN 0.4 MG SL TAB SL PRN (20:59)
[2023-11-19] MEDS ORDERED: NITROGLYCERIN 30 GM TUBE TD ONE ×2 (21:00)
[2023-11-19 21:01] LABS: APPEARANCE,URINE CLEAR (CLEAR); BILIRUBIN,URINE NEGATIVE (NEGATIVE); COLOR,URINE COLORLESS (YELLOW); GLUCOSE, URINE (UA) 50 mg/dL (NEGATIVE); KETONES,URINE NEGATIVE (NEGATIVE); LEUKOCYTE ESTERASE ,URINE NEGATIVE Leu/uL (NEGATIVE); NITRATE,URINE NEGATIVE (NEGATIVE); OCCULT BLOOD,URINE NEGATIVE (NEGATIVE); PH,URINE 7.5 (5.0-8.0); PROTEIN,URINE 50 mg/dL (NEGATIVE); UROBILINOGEN,URINE 0.2 mg/dL (0.2-1.0)
[2023-11-19 21:02] LABS: ADD UA MICROSCOPIC YES
[2023-11-19 21:05] LABS: BASOPHILS # (AUTO) 0.03 K/uL (0.00-0.20); BASOPHILS % (AUTO) 0.4 % (0.0-5.0); EOSINOPHILS # (AUTO) 0.11 K/uL (0.00-0.70); EOSINOPHILS % (AUTO) 1.5 % (0.0-8.0); HEMATOCRIT 35.7 % (36-48); IMMATURE GRANULOCYTE ABSOLUTE 0.02 K/uL (0-1); LYMPHOCYTES # (AUTO) 2.3 K/uL (1.0-4.8); LYMPHOCYTES % (AUTO) 31.8 % (21.0-51.0); MEAN CORPUSCULAR HEMOGLOBIN 27.5 pg (27.0-33.0); MEAN CORPUSCULAR HGB CONC 35.3 g/dL (32.0-36.0); MEAN CORPUSCULAR VOLUME 77.9 fL (79-99); MONOCYTES # (AUTO) 0.5 K/uL (0.1-1.0); MONOCYTES % (AUTO) 6.5 % (3.0-13.0); NEUTROPHILS # (AUTO) 4.3 K/uL (1.8-7.7); NEUTROPHILS % (AUTO) 59.5 % (40.0-77.0); PLATELET COUNT (AUTO) 258 K/uL (130-400); RED BLOOD CELL COUNT(AUTO) 4.58 MIL/uL (4.00-5.50); RED CELL DISTRIBUTION WIDTH 12.8 % (11.0-15.5); WHITE BLOOD COUNT (AUTO) 7.2 K/uL (4.8-10.8)
[2023-11-19 21:08] LABS: SQUAMOUS EPITHELIAL CELL,UR RARE /HPF (0-2); WBC,URINE 0-1 /HPF (0-1)
[2023-11-19 21:11] LABS: CREATININE 1.2 mg/dL (0.5-1.0); POTASSIUM 3.8 mmol/L (3.5-5.1)
[2023-11-19 21:13] LABS: INR <= 0.93 (0.85-1.15)
[2023-11-19 21:14] LABS: PARTIAL THROMBOPLASTIN TIME 30.5 SEC (26.3-35.5)
[2023-11-19] MEDS: NITROGLYCERIN 1GM OINT 1 INCH/1GM TD ONE (21:27)
[2023-11-19 21:29] LABS: B-TYPE NATRIURETIC PEPTIDE 26 pg/mL (0-100)
[2023-11-19] MEDS ORDERED: hydrALAZine 20MG/ML VIAL IV PRN (23:00)
[2023-11-19] MEDS ORDERED: ONDANSETRON 4MG INJ IVP PRN (23:00)
[2023-11-19] MEDS ORDERED: acetaMINOPHEN 325 MG TAB PO PRN (23:00)
[2023-11-20 07:59] LABS: BASOPHILS # (AUTO) 0.03 K/uL (0.00-0.20); BASOPHILS % (AUTO) 0.4 % (0.0-5.0); EOSINOPHILS % (AUTO) 1.5 % (0.0-8.0); HEMATOCRIT 34.7 % (36-48); IMMATURE GRANULOCYTE ABSOLUTE 0.02 K/uL (0-1); LYMPHOCYTES # (AUTO) 1.7 K/uL (1.0-4.8); LYMPHOCYTES % (AUTO) 25.4 % (21.0-51.0); MEAN CORPUSCULAR HEMOGLOBIN 27.2 pg (27.0-33.0); MONOCYTES # (AUTO) 0.5 K/uL (0.1-1.0); MONOCYTES % (AUTO) 7.1 % (3.0-13.0); NEUTROPHILS # (AUTO) 4.4 K/uL (1.8-7.7); NEUTROPHILS % (AUTO) 65.3 % (40.0-77.0); PLATELET COUNT (AUTO) 224 K/uL (130-400); RED BLOOD CELL COUNT(AUTO) 4.34 MIL/uL (4.00-5.50); RED CELL DISTRIBUTION WIDTH 12.8 % (11.0-15.5); WHITE BLOOD COUNT (AUTO) 6.8 K/uL (4.8-10.8)
[2023-11-20 08:45] LABS: ALBUMIN 3.3 g/dL (3.5-5.0); BILIRUBIN,TOTAL 0.3 mg/dL (0.2-1.0); CREATININE 1.1 mg/dL (0.5-1.0); MAGNESIUM 1.4 mg/dL (1.80-2.40); POTASSIUM 4.3 mmol/L (3.5-5.1)
[2023-11-20] MEDS: metoPROLOL tartRATE 50 MG TAB PO SCH (10:12)
[2023-11-20] MEDS: LoSARTan 100 MG TABLET PO SCH (10:12)
[2023-11-20] MEDS: ASPIRIN 81MG CHEW TAB PO SCH (10:12)
[2023-11-20 10:50] VITALS: O2SAT 99
[2023-11-20 11:15] VITALS: BP 156/68; PULSE 72; RESP 18; TEMP 98
[2023-11-20] MEDS ORDERED: ROSU40TA88 PO (12:09)
[2023-11-20] MEDS ORDERED: LORA-192 PO (12:09)
[2023-11-20] MEDS ORDERED: CLOP-31 PO (12:09)
[2023-11-20] MEDS ORDERED: MELO-108 PO (12:09)
[2023-11-20] MEDS ORDERED: ESTR1TAB17 PO (12:09)
[2023-11-20] MEDS ORDERED: LISI10TA24 PO (12:09)
[2023-11-20] MEDS ORDERED: ISOS20TA85 PO (12:09)
[2023-11-20] MEDS ORDERED: METF-446 PO (12:09)
[2023-11-20] MEDS ORDERED: TIRZ7.5P SQ (12:09)
[2023-11-20] MEDS ORDERED: CILO100T3 PO (12:09)
[2023-11-20] MEDS ORDERED: MONT-39 PO (12:09)
[2023-11-20] MEDS: ISOSORBIDE MONO 60MG SR TAB PO ONE (12:36)
[2023-11-20] MEDS: amLODIPine 5 MG TAB PO ONE ×2 (12:36→16:00)
[2023-11-20 16:00] VITALS: BP 159/76; PULSE 63; RESP 18; TEMP 98.4
[2023-11-20] MEDS ORDERED: atorVAStatin 40 MG TABLET PO SCH (21:00)
== END 2023-11-20 17:20 | disposition home or self-care (01) ==
LOC: EDH 20:31 → INTOOBSV 22:30 → EDHIP 22:30 → 4AH 11-20 10:42
PROVIDERS: ADMIT Family Medicine; ATTEND Family Medicine
DX: I25.119 Atherosclerotic heart disease of native coronary artery with unspecified angina pectoris (principal); I16.0 Hypertensive urgency; I10 Essential (primary) hypertension; E11.9 Type 2 diabetes mellitus without complications; R07.9 Chest pain, unspecified; I25.2 Old myocardial infarction; E78.5 Hyperlipidemia, unspecified; E66.9 Obesity, unspecified; Z90.710 Acquired absence of both cervix and uterus; Z90.49 Acquired absence of other specified parts of digestive tract; Z95.1 Presence of aortocoronary bypass graft; Z88.2 Allergy status to sulfonamides; Z88.0 Allergy status to penicillin; Z88.1 Allergy status to other antibiotic agents; Z88.5 Allergy status to narcotic agent; Z79.4 Long term (current) use of insulin; Z79.899 Other long term (current) drug therapy; Z91.148 Patient's other noncompliance with medication regimen for other reason; Z68.31 Body mass index [BMI] 31.0-31.9, adult
CPT/HCPCS: 82550 ×4; 84484 ×5; 80048; 83880; 85025 ×2; 85610; 85730; 81001; 36415 ×2; 71045; 96374; 99291; 93005; 83735; 84100; 80053; 93306; G0378 ×18; J0360

== ENCOUNTER 2024-08-18 03:11 | Emergency (ER) | payer OTHER ==
[~2024-08-18] VITALS: Ht 154.9 cm; Wt 72.6 kg
[~2024-08-18 03:11] MED LIST changes: -ASPI-556 PO; +CILO100T3 PO; +CLOP-31 PO; -CLOP75TA32 PO; -INSU100I13 SQ; +ISOS-58 PO; -ISOS60TA77 PO; +LISI10TA24 PO; -LISI20TA24 PO; +LORA-192 PO; +MELO-108 PO; -METF-444 PO; +METF-446 PO; +MONT-39 PO; -NIFE-78 PO; -RANO10005 PO; -SEMA1PEN3 SQ; +TIRZ7.5P SQ; -fish oil PO
--- NOTE | 2024-08-18 03:15 | ERN ---
General Chief Complaint: Chest Pain Stated Complaint: CHEST PAIN Time Seen by MD: 03:14 Source: patient History of Present Illness Initial Comments Patient is a 54-year-old female with a history of cardiac disease diabetes high blood pressure hypercholesterolemia comes in with a headache and chest pain which she often feels when her blood pressure gets very high. Her 1st reading in the unit here is systolic of 222 over a diastolic of 104. Patient also states that she has a little bit of nausea and vomiting and shortness of breath. Allergies: Coded Allergies: Penicillins (Unverified Allergy, Unknown, 12/30/18) Sulfa (Sulfonamide Antibiotics) (Unverified Allergy, Unknown, 12/30/18) ciprofloxacin (Unverified Allergy, Unknown, 12/30/18) vancomycin (Unverified Allergy, Unknown, SWELLING OF THROAT, 01/08/23) Home Meds Reported Medications Tirzepatide (Mounjaro) 7.5 Mg/0.5 Ml Pen.injctr, 7.5 MG SQ AD 11/20/23 Cilostazol (Cilostazol) 100 Mg Tablet, 100 MG PO BID, TAB 11/20/23 Clopidogrel Bisulfate (Plavix) 75 Mg Tablet, 75 MG PO AM, TAB 11/20/23 Isosorbide Mononitrate (Isosorbide Mononitrate) 20 Mg Tablet, 60 MG PO AM, TAB 11/20/23 Isosorbide Mononitrate (Isosorbide Mononitrate) 20 Mg Tablet, 20 MG PO AM, TAB 11/20/23 Metformin HCl (Metformin HCl) 1,000 Mg Tablet, 1000 MG PO BID, TAB 11/20/23 Estradiol (Estradiol) 1 Mg Tablet, 1 MG PO AM, TAB 11/20/23 Rosuvastatin Calcium (Rosuvastatin Calcium) 40 Mg Tablet, 40 MG PO HS, TAB 11/20/23 Lorazepam (Ativan) 1 Mg Tablet, 1 MG PO HS, TAB 11/20/23 Meloxicam (Meloxicam) 15 Mg Tablet, 15 MG PO AM, TAB 11/20/23 Montelukast Sodium (Montelukast Sodium) 10 Mg Tablet, 10 MG PO HS, TAB 24 Lisinopril (Lisinopril) 10 Mg Tablet, 10 MG PO BID, TAB 11/20/23 Metoprolol Tartrate (Metoprolol Tartrate) 50 Mg Tablet, 50 MG PO BID, TAB 12/31/22 Ondansetron (Ondansetron Odt) 4 Mg Tab.rapdis, 4 MG PO TID PRN for NAUSEA/VOMITING, TAB 12/31/22 Furosemide (Furosemide) 20 Mg Tablet, 20 MG PO AM, TAB 12/31/22 Past Medical History Past Medical History: Diabetes-Type II, High Cholesterol, Heart Disease, Hypertension, CA Medical History Other: PAD, STENTS Past Surgical History: Hysterectomy, Cholecystectomy, CABG, Other, Surgical History Other: STENTS, DBL BYPASS, PERIPHERAL VASCULAR BYPASS, NECK TUMOR REMOVAL Family History Family History: Negative Social History Social History: Lives with family, Other Female( History) History: Not Applicable Constitutional: (-) chills, (-) diaphoresis, (-) fever, (-) malaise, (-) weakness, (-) other documentation EENTM: (-) eye pain, (-) blurred vision, (-) tearing, (-) double vision, (-) ear pain, (-) ear discharge, (-) nose pain, (-) nose congestion, (-) throat pain, (-) Throat swelling, (-) mouth pain, (-) tooth pain, (-) mouth swelling, (-) other documentation Respiratory: (-) cough, (-) orthopnea, (-) short of breath, (-) stridor, (-) wheezing, (-) other documentation Cardiovascular: (+) chest pain Gastrointestinal/Abdominal: (+) nausea Genitourinary: (-) vaginal discharge, (-) vaginal bleeding, (-) dysuria, (-) frequency, (-) hematuria, (-) pain, (-) other documentation Musculoskeletal: (-) Neck pain, (-) back pain, (-) Flank Pain, (-) joint pain, (-) joint swelling, (-) muscle pain, (-) muscle stiffness, (-) gout, (-) other documentation Skin: (-) laceration, (-) contusion, (-) abrasion, (-) abscess, (-) rash, (-) change in color, (-) change in hair, (-) change in nails, (-) diaphoresis, (-) dryness, (-) other documentation Neuro: (+) headache Psych: (-) depression, (-) suicidal ideation, (-) anxiety, (-) emotional prob lems, (-) auditory hallucinations, (-) visual hallucinations Physical Exam General Appearance: (+) mild distress Orientation: (+) alert, (+) oriented x 3 Head/Face Trauma: No Eye: bilateral eye normal inspection, bilateral eye PERRL, bilateral eye EOMI Ear, Nose, Throat: (+) hearing grossly normal, (+) normal ENT inspection, (+) moist mucous membraine Neck: (+) normal inspection, (+) supple, (+) full range of motion Respiratory: (+) chest non-tender, (+) lungs clear, (+) well ventilated Heart: (+) regular, (+) no gallop Vascular: (+) no edema, (+) normal peripheral pulse Gastrointestinal: (+) soft, (+) non-tender, (+) bowel sound present Results Laboratory and Microbiology Lab and Micro Result Laboratory Tests Test 08/18/24 03:22 White Blood Count 7.4 K/uL (4.8-10.8) Red Blood Count 4.97 MIL/uL (4.00-5.50) Hemoglobin 13.6 g/dL (12.0-16.0) Hematocrit 39.5 % (36-48) Mean Corpuscular Volume 79.5 fL (79-99) Mean Corpuscular Hemoglobin 27.4 pg (27.0-33.0) Mean Corpuscular Hemoglobin Concent 34.4 g/dL (32.0-36.0) Red Cell Distribution Width 13.0 % (11.0-15.5) Platelet Count 248 K/uL (130-400) Mean Platelet Volume 8.8 fL (7.5-10.5) Immature Granulocyte % (Auto) 0.3 % (0-1) Neutrophils (%) (Auto) 59.8 % (40.0-77.0) Lymphocytes (%) (Auto) 31.3 % (21.0-51.0) Monocytes (%) (Auto) 6.5 % (3.0-13.0) Eosinophils (%) (Auto) 1.7 % (0.0-8.0) Basophils (%) (Auto) 0.4 % (0.0-5.0) Neutrophils # (Auto) 4.5 K/uL (1.8-7.7) Lymphocytes # (Auto) 2.3 K/uL (1.0-4.8) Monocytes # (Auto) 0.5 K/uL (0.1-1.0) Eosinophils # (Auto) 0.13 K/uL (0.00-0.70) Basophils # (Auto) 0.03 K/uL (0.00-0.20) Absolute Immature Granulocyte (auto 0.02 K/uL (0-1) Nucleated Red Blood Cells 0.0 % (0.0-0.19) Prothrombin Time 9.8 SEC (9.6-11.6) Prothromb Time International Ratio <= 0.93 (0.85-1.15) Activated Partial Thromboplast Time 30.0 SEC (26.3-35.5) Sodium Level 138 mmol/L (136-145) Potassium Level 3.5 mmol/L (3.5-5.1) Chloride Level 102 mmol/L (101-111) Carbon Dioxide Level 26 mmol/L (21-32) Blood Urea Nitrogen 20 mg/dL (7-18) H Creatinine 1.0 mg/dL (0.5-1.0) Glomerular Filtration Rate Calc 67 mL/min (>90) Random Glucose 148 mg/dL (70-105) H Total Calcium 9.5 mg/dL (8.5-10.1) Total Creatine Kinase 63 U/L (21-232) # Troponin I High Sensitivity 10 ng/L (4-50) B-Type Natriuretic Peptide 28 pg/mL (0-100) MDM I will give so the patient has some labetalol to see if that can lower her blood pressure quickly. The labetalol was held because the patient's blood pressure had dropped down to 160 systolic. EKG is normal sinus rhythm with no ischemic changes. BNP and troponin I had regular labs have been drawn. Patient's troponins and BNP are normal. Patient's chest x-ray is normal. The labetalol is currently on hold as the patient's blood pressure is dropping to more normal levels. It is systolic 141 currently. Patient's CBC and chemistry panel are also normal. I will discharge the patient from the emergency room. I discussed having the patient call her territory manager general sales for a backup blood pressure medication she can take if her blood pressure has a spike like this again and that way she can possibly avoid emergency room visits. ED Course Orders Procedure Category Date Status Time Vital Signs Per CPOE 08/18/24 Transmitted Routine 03:16 B-Type Natriuretic LAB 08/18/24 Complete Peptide 03:16 Prothrombin Time With LAB 08/18/24 Complete INR 03:16 Partial LAB 08/18/24 Complete Thromboplastin Time 03:16 Chest 1vw RAD 08/18/24 Taken 03:16 12 Lead Ekg Tracing- EKG 08/18/24 Logged Technical 03:16 Oxygen By Nc/Pulse Ox CPOE 08/18/24 Transmitted 03:16 Maintain Iv CPOE 08/18/24 Transmitted 03:16 Iv Insertion CPOE 08/18/24 Transmitted 03:16 Cardiac Monitoring CPOE 08/18/24 Transmitted 03:16 Pulse Oximetry With CPOE 08/18/24 Transmitted Vs And Prn 03:16 Cbc With Differential LAB 08/18/24 Complete 03:16 Activity: Br W/Brp CPOE 08/18/24 Transmitted With Assist 03:16 Creatine Kinase, Total LAB 08/18/24 Complete 03:16 Troponin I High LAB 08/18/24 Complete Sensitivity 03:16 Urinalysis Profile LAB 08/18/24 Logged 03:16 Basic Metabolic Panel LAB 08/18/24 Complete 03:16 Labetalol 20mg Syg PHA 08/18/24 Complete (Trandate 20mg Syg) 03:30 Current Medications Medications (Trade) Dose Ordered Sig/She Route PRN Reason Start Time Stop Time Status Last Admin Dose Admin Labetalol HCl (TRANdate 20MG SYG) 10 mg ONCE ONCE IV 08/18/24 03:30 08/18/24 03:31 DC Magnesium Citrate (Magnesium Citrate) 296 ml ONCE ONCE PO 08/18/24 03:30 08/18/24 03:31 Cancel Vital Signs Date Time Temp Pulse Resp B/P (MAP) Pulse Ox O2 Delivery O2 Flow Rate FiO2 08/18/24 03:50 79 16 141/76 98 Room Air* 0 21 08/18/24 03:25 98.2 82 16 222/104 98 Room Air* 0 21 08/18/24 03:12 97.7 85 18 237/115 98 Room Air 0 DX & DISP Disposition: Discharge Departure Impression: Primary Impression: Hypertensive emergency Condition: Stable Additional Instructions: Your blood pressure has returned to normal. Your cardiac enzymes are all normal. I recommend you talk to your territory manager general sales about possibly having a emergency blood pressure medicine you can take if you feel your blood pressure is getting high to help ameliorate any hypertensive emergencies. Referrals: FLORES SAMPSON MD (PCP) SIMA GRAMAJO MD Aug 18, 2024 03:15
[2024-08-18 03:29] LABS: BASOPHILS # (AUTO) 0.03 K/uL (0.00-0.20); BASOPHILS % (AUTO) 0.4 % (0.0-5.0); EOSINOPHILS # (AUTO) 0.13 K/uL (0.00-0.70); EOSINOPHILS % (AUTO) 1.7 % (0.0-8.0); HEMATOCRIT 39.5 % (36-48); IMMATURE GRANULOCYTE ABSOLUTE 0.02 K/uL (0-1); LYMPHOCYTES # (AUTO) 2.3 K/uL (1.0-4.8); LYMPHOCYTES % (AUTO) 31.3 % (21.0-51.0); MEAN CORPUSCULAR HEMOGLOBIN 27.4 pg (27.0-33.0); MEAN CORPUSCULAR HGB CONC 34.4 g/dL (32.0-36.0); MEAN CORPUSCULAR VOLUME 79.5 fL (79-99); MONOCYTES # (AUTO) 0.5 K/uL (0.1-1.0); MONOCYTES % (AUTO) 6.5 % (3.0-13.0); NEUTROPHILS # (AUTO) 4.5 K/uL (1.8-7.7); NEUTROPHILS % (AUTO) 59.8 % (40.0-77.0); PLATELET COUNT (AUTO) 248 K/uL (130-400); RED BLOOD CELL COUNT(AUTO) 4.97 MIL/uL (4.00-5.50); WHITE BLOOD COUNT (AUTO) 7.4 K/uL (4.8-10.8)
[2024-08-18] MEDS ORDERED: MAGNESIUM CITRATE 296 ML SOLUTION PO ONE (03:30)
[2024-08-18 03:40] LABS: POTASSIUM 3.5 mmol/L (3.5-5.1)
[2024-08-18 03:43] LABS: INR <= 0.93 (0.85-1.15); PROTHROMBIN TIME 9.8 SEC (9.6-11.6)
[2024-08-18 04:00] LABS: B-TYPE NATRIURETIC PEPTIDE 28 pg/mL (0-100)
[2024-08-18 04:29] VITALS: BP 150/72; PULSE 67; RESP 18; TEMP 98; O2SAT 98
[2024-08-18] MEDS: LAbetaLOL 20MG SYG IV ONE (04:31)
--- NOTE | 2024-08-18 06:30 | EKG ---
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
--- NOTE | 2024-08-18 08:29 | HMCIMG ---
Exam Type: CHEST 1VW Clinical Information: CHEST PAIN Comparison: None Findings: There is cardiomegaly and there is status post median sternotomy. The lungs are clear of infiltrates. Impression: Clear lungs.
== END 2024-08-18 04:32 | disposition home or self-care (01) ==
LOC: EDH 03:11
DX: I16.1 Hypertensive emergency (principal); I11.9 Hypertensive heart disease without heart failure; E11.9 Type 2 diabetes mellitus without complications; E78.00 Pure hypercholesterolemia, unspecified; I21.9 Acute myocardial infarction, unspecified; Z79.02 Long term (current) use of antithrombotics/antiplatelets; Z79.84 Long term (current) use of oral hypoglycemic drugs; Z79.899 Other long term (current) drug therapy; Z88.0 Allergy status to penicillin; Z88.1 Allergy status to other antibiotic agents; Z88.2 Allergy status to sulfonamides; Z90.49 Acquired absence of other specified parts of digestive tract; Z90.710 Acquired absence of both cervix and uterus; Z95.1 Presence of aortocoronary bypass graft
CPT/HCPCS: 36415; 71045; 80048; 82550; 83880; 84484; 85025; 85610; 85730; 93005; 99285